=== PATIENT | female | born 1990 | race African-American/Black ===

== ENCOUNTER 2017-01-10 08:42 | Emergency (ER) | payer SELFPAY ==
--- NOTE | 2017-01-10 09:56 | ER Document Report ---
HPI - HPI Patient complains to provider of: right ear pain Pain Level: 4 - CONSTITUTIONAL Constitutional: REPORTS: Fever - before today. DENIES: Chills - EENT EENT: REPORTS: Ear Pain - right. DENIES: Sore Throat, Eye problems - NEURO Neurology: DENIES: Headache, Weakness, Vision blurred, Dizzinesss / Vertigo - CARDIOVASCULAR Cardiovascular: DENIES: Chest pain - RESPIRATORY Respiratory: DENIES: Trouble Breathing, Coughing - GASTROINTESTINAL Gastrointestinal: DENIES: Abdominal Pain, Black / Bloody Stools - URINARY Urinary: DENIES: Dysuria, Urgency, Frequency - MUSCULOSKELETAL Musculoskeletal: DENIES: Extremity pain <IVANA CRUZ - Last Filed: 01/10/17 09:53> - HPI Onset: Yesterday Onset/Duration: Sudden Quality of pain: Throbbing Severity: Moderate Pain Level: 4 Context: Patient states she is just getting over a cold, complains of right ear pain that started last night. Documentation done completed under Dr. Cruz as IT issues with [employer] logging in. Associated Symptoms: Earache, Rhinnorhea Exacerbated by: Denies Relieved by: Denies Similar symptoms previously: Yes Recently seen / treated by doctor: Yes - ROS ROS below otherwise negative: Yes Systems Reviewed and Negative: Yes All other systems reviewed and negative - CONSTITUTIONAL Constitutional: REPORTS: Fever - last week - EENT EENT: REPORTS: Ear Pain, Nasal Drainage-Clear - DERM Skin Color: Normal Skin Problems: None <ELTON BIRD - Last Filed: 01/10/17 10:48> Past Medical History - Social History Smoking Status: Unknown if Ever Smoked Patient has suicidal ideation: No Patient has homicidal ideation: No - Past Medical History Cardiac Medical History: Reports: Hx Hypertension Renal/ Medical History: Denies: Hx Peritoneal Dialysis <IVANA CRUZ - Last Filed: 01/10/17 09:53> - General Information source: Patient - Social History Smoking Status: Never Smoker Frequency of alcohol use: None Drug Abuse: None Lives with: Family Family History: Reviewed & Not Pertinent - Past Medical History Cardiac Medical History: Reports: Hx Hypertension Surgical Hx: Negative <ELTON BIRD - Last Filed: 01/10/17 10:48> Vertical Provider Document - INFECTION CONTROL TRAVEL OUTSIDE OF THE [place] IN LAST 30 DAYS: No - RESPIRATORY O2 Sat by Pulse Oximetry: 99 <IVANA CRUZ - Last Filed: 01/10/17 09:53> - CONSTITUTIONAL Agree With Documented VS: Yes Exam Limitations: No Limitations General Appearance: WD/WN, No Apparent Distress - HEENT HEENT: Atraumatic, Normocephalic Notes: Right TM red and bulging, left TM with small amount of fluid behind it. Throat normal. No adenopathy - NECK Neck: Normal Inspection - RESPIRATORY Respiratory: Breath Sounds Normal, No Respiratory Distress - CARDIOVASCULAR Cardiovascular: Regular Rate, Regular Rhythm - GI/ABDOMEN Gastrointestinal: Abdomen Soft - MUSCULOSKELETAL/EXTREMETIES Musculoskeletal/Extremeties: MAEW - NEURO Level of Consciousness: Awake, Alert, Appropriate - DERM Integumentary: Warm, Dry, No Rash <ELTON BIRD - Last Filed: 01/10/17 10:48> Course - Vital Signs Vital signs: Temp Pulse Resp BP Pulse Ox 99.1 F 91 16 160/97 H 99 01/10/17 08:44 01/10/17 08:44 01/10/17 08:44 01/10/17 08:44 01/10/17 08:44 <IVANA CRUZ - Last Filed: 01/10/17 09:53> - Vital Signs Vital signs: Temp Pulse Resp BP Pulse Ox 99.1 F 89 16 158/98 H 100 01/10/17 08:44 01/10/17 10:00 01/10/17 10:00 01/10/17 10:00 01/10/17 10:00 <ELTON BIRD - Last Filed: 01/10/17 10:48> Discharge <IVANA CRUZ - Last Filed: 01/10/17 09:53> <ELTON BIRD - Last Filed: 01/10/17 10:48> - Discharge Clinical Impression: Acute suppur right otitis media w/o spontan rupture tympanic membrane Qualifiers: Recurrence: not specified as recurrent Qualified Code(s): H66.001 - Acute suppurative otitis media without spontaneous rupture of ear drum, right ear Left acute serous otitis media Qualifiers: Recurrence: not specified as recurrent Qualified Code(s): H65.02 - Acute serous otitis media, left ear Condition: Good Disposition: HOME, SELF-CARE Additional Instructions: antibiotics as prescribed push fluids tylenol or motrin prn follow up with your PCP next week for recheck return as needed Prescriptions: Amoxicillin 875 mg PO BID #20 tablet
[2017-01-10 10:11] VITALS: BP 158/98
== END 2017-01-10 10:00 | disposition home or self-care (01) ==
LOC: ER 08:42
DX: H66.001 Acute suppurative otitis media without spontaneous rupture of ear drum, right ear (principal); H65.02 Acute serous otitis media, left ear; H92.01 Otalgia, right ear; R50.9 Fever, unspecified
CPT/HCPCS: 99282

== ENCOUNTER 2018-06-29 01:27 | Emergency (ER) | payer BC ==
[2018-06-29] MEDS ORDERED: ONDANSETRON 4 MG TAB.RAPDIS PO ONE (02:37)
--- NOTE | 2018-06-29 02:40 | ER Document Report ---
ED General - General Chief Complaint: Flu Symptoms Stated Complaint: SHORTNESS OF BREATH Time Seen by Provider: 06/29/18 02:30 Notes: Patient is a 28-year-old female presents with complaint of cough and congestion. She says symptoms after she coughs she will have some vomiting. No fevers. Some sore throat. Symptoms started yesterday. She has had some subjective fevers and that she has had chills. She has a history of high blood pressure for which she takes medications. She denies any other medical problems. She denies smoking. She is otherwise healthy. TRAVEL OUTSIDE OF THE [place] IN LAST 30 DAYS: No - Related Data Allergies/Adverse Reactions: No Known Allergies Allergy (Verified 01/10/17 08:47) Past Medical History - Social History Smoking Status: Never Smoker Frequency of alcohol use: None Drug Abuse: None Family History: Reviewed & Not Pertinent - Past Medical History Cardiac Medical History: Reports: Hx Hypertension Renal/ Medical History: Denies: Hx Peritoneal Dialysis Review of Systems - Review of Systems Notes: My Normal Review Basic REVIEW OF SYSTEMS: CONSTITUTIONAL : Denies fever, chills, or sweats. Denies recent illness. EENT: Congestion RESPIRATORY: Recurrent coughing. GASTROINTESTINAL: Denies abdominal pain. Occasional vomiting GENITOURINARY: Denies difficulty urinating, painful urination, burning, frequency, or blood in urine. MUSCULOSKELETAL: Denies neck or back pain or joint pain or swelling. SKIN: Denies rash or skin lesions. NEUROLOGICAL: Denies altered mental status or loss of consciousness. Denies headache. Denies weakness or paralysis or loss of use of either side. Denies problems with gait or speech. Denies sensory or motor loss. ALL OTHER SYSTEMS REVIEWED AND NEGATIVE. Physical Exam - Vital signs Vitals: Temp Pulse Resp BP Pulse Ox 99.0 F 94 18 136/82 H 98 06/29/18 01:40 06/29/18 01:40 06/29/18 01:40 06/29/18 01:40 06/29/18 01:40 - Notes Notes: General Appearance: Well nourished, alert, cooperative, no acute distress, no obvious discomfort. Audible nasal congestion on exam. Recurrent dry cough. Vitals: reviewed, See vital signs table. Head: no swelling or tenderness to the head Eyes: PERRL, EOMI, Conjuctiva clear Mouth: No decreasd moisture Ears: Normal-appearing tympanic membranes bilaterally. Throat: No tonsillar inflammation, No airway obstruction, No lymphadenopathy Neck: Supple, no neck tenderness, No thyromegaly Lungs: No wheezing, No rales, No rhonci, No accessory muscle use, good air exchange bilaterally. Heart: Normal rate, Regular rythm, No murmur, no rub Extremities: good pulses in all extremities, no edema. Skin: warm, dry, appropriate color, no rash Neuro: speech clear, oriented x 3, normal affect, responds appropriately to questions. Course - Re-evaluation Re-evalutation: 06/29/18 05:25 Chest x-ray is negative. Patient overall looks well on exam. Suspect she probably has a viral illness. His room lisinopril to help with cough. Also given Zofran to help with nausea that she has. At this time I do not think he is decongestions is a good idea being that she has chronic hypertension and is on multiple antihypertensive medications. Encouraged to return to ER immediately if she has difficulty breathing, fevers, intractable vomiting, or she feels that she is worsening in any way. Patient agrees with plan will be discharged home. Dictation of this chart was performed using voice recognition software; therefore, there may be some unintended grammatical errors. - Vital Signs Vital signs: Temp Pulse Resp BP Pulse Ox 98.0 F 83 20 135/87 H 99 06/29/18 04:43 06/29/18 04:43 06/29/18 04:43 06/29/18 04:43 06/29/18 04:43 Discharge - Discharge Clinical Impression: URI (upper respiratory infection) Qualifiers: URI type: unspecified URI Qualified Code(s): J06.9 - Acute upper respiratory infection, unspecified Vomiting Qualifiers: Vomiting type: unspecified Vomiting Intractability: unspecified Nausea presence: with nausea Qualified Code(s): R11.2 - Nausea with vomiting, unspecified Condition: Good Disposition: HOME, SELF-CARE Additional Instructions: Your chest x-ray did not show any concerning findings. It appears that you most likely have an upper respiratory infection with recurrent cough. I suspect your recurrent cough is probably leading to some of your vomiting. I will prescribe you some nausea medicine as well as medicine to help stop the coughing. Please rest over the next few days. Please follow-up with your doctor in 2 to 3 days for reevaluation. Return to ER if you have fevers, worsening difficulty breathing, intractable vomiting, or if you feel you are worsening in any way. Prescriptions: Benzonatate [Tessalon Perle 100 mg Capsule] 100 mg PO ASDIR PRN #20 cap PRN Reason: Cough Ondansetron [Zofran Odt 4 mg Tablet] 1 tab PO Q4H PRN #15 tab.rapdis PRN Reason: For Nausea/Vomiting Forms: Return to Work
--- NOTE | 2018-06-29 03:31 | RADIOLOGY REPORT (SQ) ---
EXAM DESCRIPTION: XR CHEST 2 VIEWS COMPLETED DATE/TME: 06/29/2018 02:37 CLINICAL HISTORY: 28 years, Female, cough COMPARISON: None. NUMBER OF VIEWS: 2 TECHNIQUE: 2 view chest LIMITATIONS: None. FINDINGS: Heart size normal. Lungs clear. No pneumothorax IMPRESSION: Negative chest copyright 2010 [employer]- All Rights Reserved
[2018-06-29 04:43] VITALS: BP 135/87
== END 2018-06-29 04:43 | disposition home or self-care (01) ==
LOC: ER 01:27
DX: J06.9 Acute upper respiratory infection, unspecified (principal); R11.2 Nausea with vomiting, unspecified; R06.02 Shortness of breath; R68.89 Other general symptoms and signs; R50.9 Fever, unspecified; I10 Essential (primary) hypertension
CPT/HCPCS: 99283; 71046; S0119